=== PATIENT | male | born 1940 | race Caucasian/White ===

== ENCOUNTER 2021-02-07 12:47 | Emergency (ER) | payer OTHER, MEDICARE ==
--- NOTE | 2021-02-07 15:04 | EDM.PDOC ---
ED HPI GENERAL MEDICAL PROBLEM - General Chief Complaint: Lower Extremity Injury/Pain Stated Complaint: SWOLLEN LFT LEG Time Seen by Provider: 02/07/21 14:31 - History of Present Illness INITIAL COMMENTS - FREE TEXT/NARRATIVE: History of present illness: [] Patient was told to come here by the [facility] practitioner. They want to rule out DVT in the left lower extremity. Patient has increasing pain keeping him awake at night no left lower extremity. He has been swollen left lower extremity for a year and slightly swollen in the right lower extremity for a year. It is gradually gotten worse but the pain is keeping him up during the night for several days. The patient has intermittent redness in the area. He has no systemic signs of illness at this point. He has had radiation treatment for prostate cancer in the past. Review of systems: As per history of present illness and below otherwise all systems reviewed and negative. Past medical history: As per history of present illness and as reviewed below otherwise noncontributory. Surgical history: As per history of present illness and as reviewed below otherwise noncontributory. Social history: No reported history of drug or alcohol abuse. Family history: As per history of present illness and as reviewed below otherwise noncontributory. Physical exam: Constitutional - well developed, well-nourished and in no acute distress HEENT - normocephalic, no evidence of trauma - external nose and mouth normal - no mass in neck and no JVD - mucosae moist EYES - full EOM, PERRL, no icterus - no evidence of inflammation, injection, or drainage Respiratory - no respiratory distress, equal bilateral expansion, lungs clear to auscultation and no abnormal lung sounds Cardiovascular - Regular Rhythm with S1 and S2 appreciated and no murmur, gallop or rub. GI - abdomen soft without distension or organomegaly - normal bowel sounds - no guard or rebound Musculoskeletal no gross deformity of long bones or joints -edema in the left lower extremity from thigh down. Neurologic - Alert and oriented times four - CN II-XII grossly intact - motor sensory and coordination symmetrically normal Psychiatric - appropriate mood and affect with normal thought content Hematologic - No petechiae or purpura - mucosa appropriate color and sclera not pale - normal nail bed color and refill Integument -slight erythema of the leg below the knee on the left side with warmth in the area and tenderness in the area-otherwise no rash or evidence of trauma - normal turgor Diagnostics: [] Therapeutics: [] Impression: [] Plan: [] Definitive disposition and diagnosis as appropriate pending reevaluation and review of above. Left Leg Pain Score (Numeric/FACES): 0 - Related Data Allergies Allergy/AdvReac Type Severity Reaction Status Date / Time No Known Allergies Allergy Verified 02/07/21 13:55 Home Meds: Home Meds Loperamide HCl/Simethicone [Imodium Multi-Symptom Rel Cplt] 1 tab PO ASDIRECTED PRN 12/10/18 [History] Darolutamide [Nubeqa] 300 mg PO DAILY 02/07/21 [History] Furosemide [Lasix] 20 mg PO DAILY 02/07/21 [History] cephALEXin [Cephalexin] 500 mg PO BID #14 capsule 02/07/21 [Rx] traZODone 50 mg PO DAILY 02/07/21 [History] Past Medical History - Past Health History Medical/Surgical History: Denies Medical/Surgical History HEENT History: Reports: Cataract, Hard of Hearing, Other (See Below) Other HEENT History: wears glasses, has bilateral hearing aides Gastrointestinal History: Reports: Colon Polyp, Diverticulosis, GERD Other Gastrointestinal History: has not had GERD recently Genitourinary History: Reports: Prostate Disorder Other Genitourinary History: hx of Prostate and Bladder cancer Musculoskeletal History: Reports: Fracture Oncologic (Cancer) History: Reports: Bladder, Prostate, Other (See Below) 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 - Past Surgical History HEENT Surgical History: Reports: Tonsillectomy GI Surgical History: Reports: Cholecystectomy, Colonoscopy, EGD, Hernia, Inguinal Male Surgical History: Reports: TURP-Transurethral Resection of Prostate Musculoskeletal Surgical History: Reports: ORIF Other Musculoskeletal Surgeries/Procedures:: hx of ORIF right wrist- hardware removed Other Oncologic Surgeries/Procedures: had radiation therapy, recently started Chemo Social & Family History - Tobacco Use Tobacco Use Status *Q: Never Tobacco User - Caffeine Use Caffeine Use: Reports: Coffee - Recreational Drug Use Recreational Drug Use: No Review of Systems - Review of Systems Review Of Systems: Comprehensive ROS is negative, except as noted in HPI. ED EXAM, GENERAL - Physical Exam Exam: See Below Free Text/Narrative:: My physical exam is in the HPI Course - Vital Signs Last Recorded V/S: Last Vital Signs Temp 36.4 C 02/07/21 13:46 Pulse 96 02/07/21 13:46 Resp 16 02/07/21 13:46 BP 129/62 02/07/21 13:46 Pulse Ox 96 02/07/21 13:46 - Orders/Labs/Meds Labs: Laboratory Tests 02/07/21 02/07/21 Range/Units 15:25 15:25 WBC 5.82 (4.0-11.0) K/uL RBC 4.21 L (4.50-5.90) M/uL Hgb 12.9 L (13.0-17.0) g/dL Hct 38.3 (38.0-50.0) % MCV 91.0 (80.0-98.0) fL MCH 30.6 (27.0-32.0) pg MCHC 33.7 (31.0-37.0) g/dL RDW Std Deviation 45.9 (28.0-62.0) fl RDW Coeff of Rachel 14 (11.0-15.0) % Plt Count 237 (150-400) K/uL MPV 9.60 (7.40-12.00) fL Neut % (Auto) 54.1 (48.0-80.0) % Lymph % (Auto) 31.3 (16.0-40.0) % Hopkins % (Auto) 10.7 (0.0-15.0) % Eos % (Auto) 3.4 (0.0-7.0) % Baso % (Auto) 0.5 (0.0-1.5) % Neut # (Auto) 3.2 (1.4-5.7) K/uL Lymph # (Auto) 1.8 (0.6-2.4) K/uL Hopkins # (Auto) 0.6 (0.0-0.8) K/uL Eos # (Auto) 0.2 (0.0-0.7) K/uL Baso # (Auto) 0.0 (0.0-0.1) K/uL Nucleated RBC % 0.0 /100WBC Nucleated RBCs # 0 K/uL Sodium 142 (136-148) mmol/L Potassium 3.9 (3.5-5.1) mmol/L Chloride 105 (98-107) mmol/L Carbon Dioxide 27.3 (21.0-32.0) mmol/L BUN 28 H (7.0-18.0) mg/dL Creatinine 1.2 (0.8-1.3) mg/dL Est Cr Clr Drug Dosing TNP Estimated GFR (MDRD) 58.3 ml/min Glucose 91 (74-106) mg/dL Calcium 8.7 (8.5-10.1) mg/dL Magnesium 2.2 (1.8-2.4) mg/dL Total Bilirubin 0.3 (0.2-1.0) mg/dL AST 21 (15-37) IU/L ALT 21 (14-63) IU/L Alkaline Phosphatase 55 (46-116) U/L Total Protein 7.3 (6.4-8.2) g/dL Albumin 3.2 L (3.4-5.0) g/dL Globulin 4.1 H (2.6-4.0) g/dL Albumin/Globulin Ratio 0.8 L (0.9-1.6) Departure - Departure Time of Disposition: 16:49 Disposition: Home, Self-Care 01 Condition: Good Clinical Impression: Cellulitis of left lower extremity, Edema of left lower extremity - Discharge Information Prescriptions: cephALEXin [Cephalexin] 500 mg PO BID #14 capsule Instructions: Cellulitis, Adult Referrals: Arie Cardoso NP [Primary Care Provider] - Forms: ED Department Discharge Additional Instructions: Prescription for antibiotic was sent to [place] pharmacy Elevate the left leg There was no blood clot demonstrated on the ultrasound [facility] [address] [place] [id number] [address] The following information is given to patients seen in the emergency department who are being discharged to home. This information is to outline your options for follow-up care. We provide all patients seen in our emergency department with a follow-up referral. The need for follow-up, as well as the timing and circumstances, are variable depending upon the specifics of your emergency department visit. If you don't have a primary care physician on staff, we will provide you with a referral. We always advise you to contact your personal physician following an emergency department visit to inform them of the circumstance of the visit and for follow-up with them and/or the need for any referrals to a consulting specialist. The emergency department will also refer you to a specialist when appropriate. This referral assures that you have the opportunity for follow-up care with a specialist. All of these measure are taken in an effort to provide you with optimal care, which includes your follow-up. Under all circumstances we always encourage you to contact your private physician who remains a resource for coordinating your care. When calling for follow-up care, please make the office aware that this follow-up is from your recent emergency room visit. If for any reason you are refused follow-up, please contact the [facility] at and asked to speak to the emergency department charge nurse. Sepsis Event Note (ED) - Evaluation Sepsis Screening Result: No Definite Risk - Focused Exam Vital Signs: Vital Signs Temp Pulse Resp BP Pulse Ox 02/07/21 13:46 36.4 C 96 16 129/62 96
--- NOTE | 2021-02-07 15:37 | US ---
INDICATION: Swelling left ankle. History of left CHRISTINE 7 weeks ago. TECHNIQUE: Ultrasound venous duplex lower left extremity. Compression venous exam was performed using hale-scale, color Doppler, and spectral Doppler analysis. COMPARISON: None. FINDINGS: Deep veins: Sonographic imaging demonstrates the left common femoral, deep femoral, superficial femoral, popliteal, posterior tibial and the contralateral right common femoral veins to be fully compressible with normal color Doppler blood flow. Superficial veins: Greater saphenous vein is fully compressible. No popliteal cyst. IMPRESSION: Normal left lower extremity venous ultrasound, no sign of deep venous thrombosis. Dictated by Matheus Miranda MD @ 02/07/2021 3:34:56 PM (Electronically Signed)
[2021-02-07 16:46] LABS: BLOOD UREA NITROGEN,BUN 28 mg/dL (7.0-18.0); CARBON DIOXIDE,CO2 27.3 mmol/L (21.0-32.0); CHLORIDE,CL 105 mmol/L (98-107); GLUCOSE RANDOM 91 mg/dL (74-106); POTASSIUM,K 3.9 mmol/L (3.5-5.1); SODIUM,NA 142 mmol/L (136-148)
[2021-02-07 16:56] VITALS: BP 150/79; PULSE 69
== END 2021-02-07 17:03 | disposition home or self-care (01) ==
LOC: MW.ED 12:47
DX: L03.116 Cellulitis of left lower limb (principal)
CPT/HCPCS: 36415; 80053; 83735; 85025; 93971-26-LT; 93971-LT; 99284-25